=== PATIENT | male | born 1950 | race Caucasian/White ===

== ENCOUNTER → 2020-01-08 13:53 | Outpatient (CLI) | payer OTHER, SELFPAY ==
[2020-01-08 16:08] LABS: Creatinine, Serum 0.96 mg/dL (0.70-1.30); EST Glomerular Filtration Rate 82 mL/min (>60); Est Glom Filt Rate - Afr Amer 99 mL/min (>60)
== END ==
PROVIDERS: PCP Orthopaedic Surgery
DX: Z87.898 Personal history of other specified conditions (principal); Z12.5 Encounter for screening for malignant neoplasm of prostate
CPT/HCPCS: 36415; 82565; 84153; G0103